=== PATIENT | male | born 1965 | race Caucasian/White ===

== ENCOUNTER 2017-06-18 12:54 | Inpatient (IN) ==
--- OUTSIDE RECORDS SUMMARY | 2017-06-18 13:19 | External Medical Summary | Continuity of Care Document ---
:1965 Author Organization Via [facility] Allergies Active Description Code Type Severity Reaction Onset Reported/ Identified Relationship Clinical to Patient Status Yes No Known NKMA N/A N/A 12/07/2014 Medication Allergies Yes No Known NKMA N/A N/A 12/07/2014 Medication Allergies Yes No Known NKMA N/A N/A 12/15/2014 Allergies Yes No Known NKMA N/A N/A 12/15/2014 Allergies Medications There is no data. Problems Date Dx Attending Type Code Diagnosis Diagnosed By Coded 12/28/2014 Andrew Wagner Final 721.3 LUMBOSACRAL SPONDYLOSIS WITHOUT MYELOPATHY 12/28/2014 Andrew Wagner Admitting 722.52 DEGENERATION OF LUMBAR OR LUMBOSACRAL INTERVERTEBRAL DISC 12/28/2014 Andrew Wagner Final 722.52 DEGENERATION OF LUMBAR OR LUMBOSACRAL INTERVERTEBRAL DISC Procedures Code Description Performed By Performed On 80.51 Excision of 12/20/2014 intervertebral disc 60187 Collection of 12/22/2015 venous blood by venipuncture 71394 Comprehensive 12/22/2015 metabolic panel This panel must include the following: Albumin (54672) Bilirubin, total (96905) Calcium, total (05312) Carbon dioxide (bicarbonate) (31233) Chloride (85458) Creatinine (8 01715 Lipid panel 12/22/2015 This panel must include the following: Cholesterol, serum, total (13387) Lipoprotein, direct measurement, high density cholesterol (HDL cholesterol) (51404) Triglycerides (89687)..... 00099 Prostate 12/22/2015 specific antigen (PSA); total 61634 Blood count; 12/22/2015 complete (CBC), automated (Hgb, Hct, RBC, WBC and platelet count) and automated differential WBC count 26220 Office or 12/22/2015 other outpatient visit for the evaluation and management of an established patient, which requires at least 2 of these 3 aguilera components: A detailed history; A detailed examination; Medical d Results There is no data. Encounters ACCT No. Visit Discharge Status Pt. Type Provider Facility Loc./Unit Complaint Date/Time [id number] 12/20/2014 12/21/2014 DIS Inpatient [place], Via [facility] F6SE Lumbar 47 05:23:00 13:37:00 Andrew Holliday DDD, Hospital stenosis [facility] [id number] 12/22/2015 12/22/2015 DIS Outpatient [place], Via [facility] TCPA 57 08:51:00 23:59:00 Ilan Holliday physical Clinic [id number] 01/23/2015 01/23/2015 DIS Outpatient [place], Via [facility] FM Allergic 21 09:47:00 23:59:00 Ilan Holliday reaction Clinic [id number] 12/07/2014 12/07/2014 DIS Outpatient [place], Via [facility] Mur Pre op, 55 15:21:00 23:59:00 Ilan Holliday Card V72.84, Clinic [place] [id number] 12/07/2014 12/07/2014 DIS Outpatient [place], Via [facility] pre op 48 09:31:00 23:59:00 Ilan Holliday Clinic [id number] 05/23/2014 05/23/2014 DIS Outpatient [place], Via [facility] annual 72 13:44:00 23:59:00 Ilan Holliday checkup/ba Clinic ck pain
[2017-06-18] MEDS ORDERED: PIPERACILLIN/TAZOBACTAM 3.375 GM in NS 100 ML IV ONE (13:27)
--- NOTE | 2017-06-18 13:37 | Emergency Department Report ---
Abdominal Pain HPI - General Chief Complaint: Abdominal Pain Stated Complaint: abd pain Time Seen by Provider: 06/18/17 13:06 Source: patient, RN notes reviewed, old records reviewed, other (PCM) Mode of arrival: ambulatory Limitations: no limitations - History of Present Illness HPI narrative: 51yo man referred to the ER by his PCM for evaluation of abdominal pain. Pt has had low abdominal pain since Friday (4 days). Has taken naproxen and avoided solid foods to help the pain. Is able to tolerate liquids. Has never had sx like this before. MD complaint: abdominal pain Onset (ago): day(s) (4) Consistency: constant Location: LLQ, RLQ Severity: severe Severity scale (1-10): 8 Quality: stabbing, sharp Radiation: none Migration to: no migration Relieving factors: medication, rest Exacerbating factors: eating, movement Associated symptoms: nausea Treatments prior to arrival: NSAIDs - Related Data Home Medications Medication Instructions Recorded Confirmed Aspirin [ASA] 325 mg PO HS 06/18/17 06/18/17 Multivitamin [One Daily 1 each PO HS 06/18/17 06/18/17 Multivitamin] [place]-3/Dha/Epa/Fish Oil [Fish Oil 2 cap PO HS 06/18/17 06/18/17 1,000 mg Softgel] Allergies Allergy/AdvReac Type Severity Reaction Status Date / Time No Known Drug Allergies Allergy Unknown Verified 06/18/17 12:59 Review of Systems All systems: reviewed and negative except as stated Gastrointestinal: Reports: as per HPI, abdominal pain, nausea. Denies: vomiting , diarrhea, constipation, hematemesis, melena, hematochezia [facility] Medical History Updates: CAD. Hyperlipidemia - Social History Smoking status: Unknown if ever smoked Physical Exam - Limitations Limitations: no limitations - General General appearance: alert, in no apparent distress, obese - Head Head exam: atraumatic, normocephalic, normal inspection - Eye Eye exam: Present: normal appearance, PERRL, EOMI. Absent: scleral icterus - ENT ENT exam: Present: normal exam, normal oropharynx, mucous membranes moist, TM's normal bilaterally, normal external ear exam - Neck Neck exam: Present: normal inspection, full ROM, trachea midline. Absent: tenderness, lymphadenopathy - Chest Chest inspection: Present: normal inspection, symmetric chest wall rise. Absent : tenderness, rash - Respiratory Respiratory exam: Present: normal lung sounds bilaterally. Absent: respiratory distress, wheezes, stridor, prolonged expiratory phase, crackles - Cardiovascular Cardiovascular exam: Present: regular rate, normal rhythm, normal heart sounds, +S1, +S2. Absent: systolic murmur, diastolic murmur, +S3, +S4 - Abdominal Exam Abdominal exam: Present: soft, tenderness, normal bowel sounds, heel tap sign, Rovsing's sign. Absent: distention, guarding, rebound, psoas sign, obturator sign, Jara's sign, tenderness at McBurney's Point, hernia Abdominal tenderness: Present: RLQ, LLQ, severe Course - Consultations Consultation #1: Dr. Renteria: Not available (in [place]) Dr. Ramírez: Delay in response 2/2 issues with pager/phone (unclear if Dr. Ramírez ever paged or his nurse called). Time: 13:34 Consultation #2: Hospitalist: Time: 15:06 Vital Signs Temperature 99.4 F 06/18/17 13:00 Pulse Rate 92 06/18/17 13:00 Respiratory Rate 22 06/18/17 13:00 Blood Pressure 120/58 06/18/17 13:00 Pulse Oximetry 98 06/18/17 13:00 Temperature 99.4 F 06/18/17 13:00 Pulse Rate 92 06/18/17 13:00 Respiratory Rate 22 06/18/17 13:00 Blood Pressure 120/58 06/18/17 13:00 Pulse Oximetry 98 06/18/17 13:00 Abdominal Pain - MDM Narrative Medical decision making narrative: Pt with perforated diverticulitis. Pt specifically would prefer to be followed by Dr. Renteria. Will draw blood culx and lactate, start atbx, and consult surgeon. Dr. Ramírez presented to the ER and evaluated pt. Will plan for expeditious open colectomy. Hospitalist will admit pt. - Differential Diagnosis Differential diagnosis: Likely: abdominal pain, acute appendicitis, constipation , diverticulitis, gastroenteritis - Medical Records Attestation: I reviewed the patient's medical records. - Lab Data Attestation: I reviewed the patient's lab results. - Radiology Data Attestation: I reviewed the patient's radiology results. CT Abd/Pelv: Perforated sigmoid diverticulitis. Recommend emergent surgical consultation. Disposition Clinical Impression: Diverticulitis of sigmoid colon, Peritonitis Disposition: 02 To OBS [facility] Print Language: Macedonian Condition: Stable Prescriptions: No Action [place]-3/Dha/Epa/Fish Oil [Fish Oil 1,000 mg Softgel] 2 cap PO HS Multivitamin [One Daily Multivitamin] 1 each PO HS Aspirin [ASA] 325 mg PO HS Time of Disposition: 15:10 - Seen By: physician
[2017-06-18] MEDS ORDERED: NS 1,000 ML IV ONE (13:43)
[2017-06-18] MEDS ORDERED: MORPHINE SULFATE 2mg INJECTION IVP ONE (14:45)
[2017-06-18] MEDS ORDERED: INFLUENZA VAC. INJ. ADMIN CHARGE INJ ONE (15:18)
--- OUTSIDE RECORDS SUMMARY | 2017-06-18 15:26 | External Medical Summary | Continuity of Care Document ---
:1965 Author Organization Via [facility] Allergies Active Description Code Type [...] On 80.51 Excision of 12/20/2014 intervertebral disc 30485 Collection of 12/22/2015 venous blood by venipuncture 16053 Comprehensive 12/22/2015 metabolic panel This panel must include the following: Albumin (20572) Bilirubin, total (76800) Calcium, total (28066) Carbon dioxide (bicarbonate) (49901) Chloride (59349) Creatinine (8 08642 Lipid panel 12/22/2015 This panel must include the following: Cholesterol, serum, total (29598) Lipoprotein, direct measurement, high density cholesterol (HDL cholesterol) (79114) Triglycerides (43268)..... 99294 Prostate 12/22/2015 specific antigen (PSA); total 04164 Blood count; 12/22/2015 complete (CBC), automated (Hgb, Hct, RBC, WBC and platelet count) and automated differential WBC count 96016 Office or 12/22/2015 other outpatient visit for the evaluation and management of an established patient, which requires at least 2 of these 3 aguilera components: A detailed history; A detailed examination; Medical d Results There is no data. Encounters ACCT No. Visit Discharge Status Pt. Type Provider Facility Loc./Unit Complaint Date/Time [id number] 12/20/2014 12/21/2014 DIS Inpatient [place], Via [facility] F6SE Lumbar 47 05:23:00 13:37:00 Andrew Holliday DDD, Hospital stenosis on [place] [id number] 12/22/2015 12/22/2015 DIS Outpatient [place], Via [facility] TCPA 57 08:51:00 23:59:00 Ilan Holliday physical Clinic [id number] 01/23/2015 01/23/2015 DIS Outpatient [place], Via [facility] FM Allergic 21 09:47:00 23:59:00 Ilan Holliday reaction Clinic [id number] 12/07/2014 12/07/2014 DIS Outpatient [place], Via [facility] Mur Pre op, 55 15:21:00 23:59:00 Ilan Holliday Card V72.84, Clinic [place] [id number] 12/07/2014 12/07/2014 DIS Outpatient [place], Via [facility] pre op 48 09:31:00 23:59:00 Ilan Holliday Clinic [id number] 05/23/2014 05/23/2014 DIS Outpatient [place], Via [facility] annual 72 13:44:00 23:59:00 Ilan Holliday checkup/ba Clinic ck pain
[2017-06-18] MEDS ORDERED: NS 1,000 ML IV SCH (15:37)
[2017-06-18] MEDS ORDERED: ONDANSETRON 4 MG/2 ML INJECTION IVP PRN ×3 (15:37→21:59)
[2017-06-18] MEDS ORDERED: ACETAMINOPHEN 325 MG TABLET PO PRN (15:37)
[2017-06-18] MEDS ORDERED: SENNA + DOCUSATE TABLET PO PRN (15:37)
[2017-06-18] MEDS ORDERED: HYDROMORPHONE 2 MG/ML INJECTION IVP PRN ×2 (15:37→21:59)
--- NOTE | 2017-06-18 15:40 | Anesthesia Preoperative Report ---
Anesthesia Preoperative Record - Date and Time Date: 06/18/17 Preoperative Diagnosis: abd pain Proposed Procedure: exploratory lap NPO Since Date: 06/17/17 NPO Since Time: 22:00 Allergies/Adverse Reactions: Allergies Allergy/AdvReac Type Severity Reaction Status Date / Time No Known Drug Allergies Allergy Unknown Verified 06/18/17 12:59 - Vital Signs Vital Signs: Temperature 99.4 F 06/18/17 13:00 Pulse Rate 89 06/18/17 15:15 Respiratory Rate 19 06/18/17 15:15 Blood Pressure 106/60 06/18/17 15:15 Pulse Oximetry 97 06/18/17 15:15 Height and Weight: Height 1.93 m Weight 103.1 kg - Medications Home Medications: Home Medications Medication Instructions Recorded Confirmed Type Aspirin [ASA] 325 mg PO HS 06/18/17 06/18/17 History Multivitamin [One Daily 1 each PO HS 06/18/17 06/18/17 History Multivitamin] [place]-3/Dha/Epa/Fish Oil [Fish Oil 2 cap PO HS 06/18/17 06/18/17 History 1,000 mg Softgel] Is Patient on Beta Yessica?: No - Medical History Gastrointestional: Reports: Gastroesophageal Reflux Disease Neuro/Musculoskeletal: Reports: Back Problems (anterior fusion L4) - Surgical History HEENT Surgeries: Reports: Nose Surgery (DEVIATED SEPTUM REPAIR) - Social History Smoking Status: Current every day smoker Packs per day: 1 Pack-years: 30 Hx Chewing Tobacco Use: No Second Hand Exposure: No Substance Use Type: does not use Alcohol Intake Frequency: does not drink - Pertinent Findings EKG: Sinus Rhythm - Physical Exam Respiratory Exam: Present: lungs clear Cardiovascular Exam: Present: regular rate and rhythm, no murmur - Airway Assessment Mallampati Score: I TMD: 3 Fingerbreadths Neck Extension: good Teeth: chipped teeth/crowns Overall Assessment: no airway concerns - ASA ASA Score: 2, E - Plan Anesthesia: General Inhalation Gases - Discussion Discussion: Discussed risks/options/alternatives of anesthesia and questions answered. Patient consents. Nursing pain assessment noted. Present for Discussion: spouse, family member Attestation Statement: Prior to the delivery of any anesthetic medication, I examined the patient, developed the plan, obtained the patient's consent and discussed the risk and benefits of the procedure with the patient/guardian. - Additional Information Seen by Anesthesia: Yes
[2017-06-18] MEDS: LR 1,000 ML IV SCH ×3 (16:00→19:09)
[2017-06-18] MEDS ORDERED: ROCURONIUM 50 MG/5 ML INJECTION IVP ONE (16:01)
[2017-06-18] MEDS ORDERED: PROPOFOL 20 ML ONE (16:01)
[2017-06-18] MEDS ORDERED: FentaNYL 250 MCG/5 ML INJECTION ONE (16:24)
--- NOTE | 2017-06-18 17:14 | History & Physical Report ---
History of Present Illness Date: 06/19/17 Chief complaint: bowel perforation, leukocytosis HPI: Jerry Theodore is a 51-year-old male who presented to [facility] today, 06/18/17, for evaluation of lower abdominal pain for the past 4 days. He was seen by his PCP who obtained an outpatient CT abdomen/pelvis on 06/18/17 which revealed perforated sigmoid diverticulitis and recommended emergent surgical consultation. He then presented to [facility] for further evaluation at which time Dr. Ramírez was consulted and recommended immediate surgery with the hospitalist service to admit. Dr. Bob was consulted and accepted him into inpatient status following his surgery. He is expected to stay longer than 2 nights. Labs were obtained prior to surgery which revealed leukocytosis (WBC 13.0) and mild anemia (Hgb 13.0). BMP was unremarkable. Lactate 1.3. Review of Systems All systems PM: 10-point ROS was reviewed, no additional remarkable complaints except - Constitutional Constitutional: Present: fever(s) - EENMT Eyes: Absent: photophobia Balance: Absent: falling to one side Nose: Absent: nosebleeds Mouth/Throat: Present: dry mouth. Absent: sore throat - Cardiovascular Cardiovascular: Absent: chest pain, palpitations, syncope, dyspnea on exertion, orthopnea, edema Vascular: Absent: pallor of an extermity, pedal edema - Respiratory Respiratory: Absent: cough, dyspnea, hemoptysis, dyspnea on exertion, wheezing - Gastrointestinal Gastrointestinal: Present: abdominal pain (lower abdomen), dyspepsia, nausea - Genitourinary Genitourinary: Absent: dysuria, hematuria - Musculoskeletal Musculoskeletal: Absent: deformity - Integumentary/Breasts Integumentary: Absent: rash - Neurological Neurological: Absent: confusion, weakness - Psychiatric Psychiatric: Absent: depression - Endocrine Endocrine: Absent: palpitations - Hematologic/Lymphatic Hematologic/Lymphatic: Absent: easy bruising - Allergic/Immunologic Allergic/Immunologic: Absent: seasonal rhinorrhea Past Medical History Patient Stated Medical History Hypertension. CAD. Hyperlipidemia. History of CVA and TIA. GERD. Chronic back pain secondary to herniated disk. Surgical History: Deviated septum repair. Tubes in ears bilaterally for chronic otitis. Heart cath - 2010. Anterior fusion L4. Family History Updates: Father - lung cancer due to asbestos. Mother - hypothyroidism, osteoarthritis. Grandfather - diabetes, muscular dystrophy. - Social History Smoking status: Current every day smoker Packs per day: 1 Packs-years: 30 Substance use type: does not use Alcohol intake frequency: holidays/special occasions only Housing: house Household members: spouse service: Yes ([employer]) Current occupational status: retired Does patient use chewing tobacco?: No Current residence: Apartment/Private Home Social history: PCP - Lyndsey Walker APRN. Cardio - Dr. Nair. Medications Home Medications Medication Instructions Recorded Confirmed Type Aspirin [ASA] 325 mg PO HS 06/18/17 06/18/17 History Multivitamin [One Daily 1 each PO HS 06/18/17 06/18/17 History Multivitamin] Naproxen [Aleve] 220 mg PO Q6H PRN 06/18/17 06/18/17 History [place]-3/Dha/Epa/Fish Oil [Fish Oil 2 cap PO HS 06/18/17 06/18/17 History 1,000 mg Softgel] Allergies Allergy/AdvReac Type Severity Reaction Status Date / Time morphine AdvReac Verified 06/18/17 15:52 Exam Vital Signs: Temperature 99.1 F 06/18/17 15:53 Pulse Rate 107 H 06/18/17 15:53 Respiratory Rate 15 06/18/17 15:53 Blood Pressure 140/67 H 06/18/17 15:53 Pulse Oximetry 98 06/18/17 15:53 Telemetry Rhythm: Sinus Rhythm Height/Weight/BMI: Height 6 ft 4 in Weight 227 lb 4.745 oz Comments: Patient is seen shortly after his arrival to CCU. His , Jenny, is at the bedside. He complains of pain 8/10 but appears in no acute distress. - Constitutional Present: no acute distress, well nourished, well developed, cooperative - Routine HEENT Exam Head: Present: normocephalic, atraumatic Eye: Present: PERRL. Absent: conjunctival icterus ENT: Present: mucous membranes dry - Routine Neck Exam Present: supple, trachea midline - Routine Chest/Breast/Axilla Exam Chest wall: Absent: tenderness - Routine Respiratory Exam Absent: accessory muscle use Comments: diminished lung sounds bilaterally; breathing easily on 2L NC without distress; no conversational dyspnea. - Routine Cardiovascular Exam Present: RRR, S1, S2, no murmur - Routine Abdominal Exam Present: soft, tenderness Comments: hypoactive bowel sounds. - Routine Extremities Exam Present: no edema, pulses intact - Routine Back/Spine/Pelvis Exam Comments: unable to examine due to severe abdominal pain. - Routine Skin Exam Present: dry, warm. Absent: jaundice Comments: afebrile - Routine Neurological Exam Present: alert, oriented X3, moving all extremities, normal speech - Routine Psychiatric Exam Present: cooperative Comments: sedated from recent surgery and medications. Results - Labs CBC & Chem 7: 06/19/17 04:47 06/19/17 04:47 Microbiology Results: Microbiology 06/18/17 13:50 Peripheral/Iv Start Blood Culture - Preliminary Culture Initiated - Results Pending 06/18/17 13:44 Peripheral/Iv Start Blood Culture - Preliminary Culture Initiated - Results Pending - Imaging and Cardiology CT scan - abdomen Status: image reviewed by me Additional comments: Date of Exam: 06/18/17 Type of Exam(s): CT abdomen pelvis w con Reason for Exam(s): R10.9 ACUTE ABD PAIN Technique: Axial CT images were performed through the abdomen and pelvis after the administration of intravenous contrast. Coronal and sagittal two-dimensional reformats. Automated Exposure Control and Iterative Reconstruction dose reducing techniques were utilized. Contrast: Omnipaque 300 99 mL Findings: Linear atelectasis seen in the lingula and both lower lobes. Free intraperitoneal air is seen in the right upper abdomen surrounding the liver margin. There is a low-attenuation 1.7 cm lesion in the central aspect of the right lobe of the liver measuring 18 Hounsfield units. This could represent a benign cyst . Small amount of free air in the guicho hepatis. The gallbladder appears normal. The spleen is unremarkable. The pancreas and adrenal glands are normal. The kidneys are normal. Small foci of free air along the greater curvature of stomach and under the left hemidiaphragm as well. There is inflammation in the pelvis adjacent to the left aspect of the bladder which is otherwise normal. There is sigmoid colonic severe inflammatory change with multiple diverticula present. There is a large focus of extraluminal gas seen adjacent to the mid sigmoid colon on image #77 measuring 3 cm in diameter. Severe inflammation within the adjacent sigmoid mesentery with inflammatory change extending into the left inguinal canal. No evidence of a bowel obstruction. The appendix is slightly thickened at 7 mm in diameter without adjacent inflammatory stranding. No well-defined rim-enhancing abscess identified. There is a small amount of free fluid in the left pelvis adjacent to the sigmoid colonic perforation. Bone windows show postoperative changes in the spine. No lytic or blastic bony lesions. Impression: Perforated sigmoid diverticulitis. Recommend emergent surgical consultation. Assessment and Plan (1) Perforation bowel Current visit: Yes Status: Acute (2) Diverticulitis of sigmoid colon Current visit: Yes Status: Acute (3) Peritonitis Current visit: Yes Status: Acute Assessment and Plan: Acute Medical History Bowel perforation secondary to diverticulitis, acute. Acute peritonitis. Leukocytosis, present on admission. Mild anemia, present on admission. Patient Stated Medical History Hypertension. CAD. Hyperlipidemia. History of CVA and TIA. GERD. Chronic back pain secondary to herniated disk. Plan - 06/18/17 (Admission) Admit to inpatient status under hospitalist service. Dr. Ramírez was consulted by ED and requests that hospitalist admit as he plans to take the patient to surgery immediately. Zosyn initiated in ED for antimicrobial coverage of suspected abdominal pathogens. Will continue per Dr. Ramírez. While in the ED, he received 1L NS. Will continue IV hydration. Monitor urinary output closely. Dick placed prior to surgery. Monitor blood pressure closely as he has a history of hypertension but is currently not taking any home medications for it. Encourage incentive spirometry. Recheck CBC and BMP in AM to monitor blood counts, electrolytes and renal function. Upon discharge, patient's care will returned to his PCP. DVT Prophylaxis: SCD's GI Prophylaxis: Protonix Resuscitation Status: Full Code - Time spent with patient Time with patient PN: 50 minutes - Physician Narrative Physician: other (Dr. Bob) Narrative: Date: 06/18/17 Time: 1710 Agree with above documentation. Discussed with PA/TORPEDO WORKER and directed plan of care. Admitting to hospitalist service per request of surgeon. Patient immediately to OR. Will continue abx and monitor labs post op. Hospital Course Summary Disclaimer: The visit summary below is not to be considered part of the above Progress Note. Hospital Course: Plan - 06/18/17 (Admission) Admit to inpatient status under hospitalist service. Dr. Ramírez was consulted by ED and requests that hospitalist admit as he plans to take the patient to surgery immediately. Zosyn initiated in ED for antimicrobial coverage of suspected abdominal pathogens. Will continue per Dr. Ramírez. While in the ED, he received 1L NS. Will continue IV hydration. Monitor urinary output closely. Dick placed prior to surgery. Monitor blood pressure closely as he has a history of hypertension but is currently not taking any home medications for it. Encourage incentive spirometry. Recheck CBC and BMP in AM to monitor blood counts, electrolytes and renal function. Upon discharge, patient's care will returned to his PCP.
[2017-06-18] MEDS ORDERED: DESFLURANE 240ml LIQUID IH ONE (17:31)
[2017-06-18] MEDS ORDERED: FentaNYL 100 MCG/2 ML INJECTION ONE (19:18)
--- NOTE | 2017-06-18 19:37 | General Surgery Procedure Note ---
Date of Procedure: 06/18/17 Surgeon: Desiree Postoperative Diagnosis: Perforated sigmoid colon diverticulum Procedure: Sigmoid colon resection with primary anastomosis. Estimated Blood Loss: See Anesthesia Record.
[2017-06-18] MEDS ORDERED: SUGAMMADEX 200mg/2ml INJECTION IVP ONE (19:40)
[2017-06-18] MEDS ORDERED: KETOROLAC 30 MG/ML INJECTION ONE (19:40)
[2017-06-18] MEDS ORDERED: DEXAMETHASONE 4 MG/ML INJECTION ONE (19:41)
[2017-06-18] MEDS ORDERED: ONDANSETRON 4 MG/2 ML INJECTION ONE (19:41)
[2017-06-18] MEDS ORDERED: METOCLOPRAMIDE 10mg/2ml INJECTION IVP PRN (19:58)
[2017-06-18] MEDS: FentaNYL 100 MCG/2 ML INJECTION IVP PRN ×3 (20:01→20:29)
--- NOTE | 2017-06-18 20:24 | Anesthesia Postoperative Note ---
- Date and Time Date: 06/18/17 Time: 20:24 - Status Patient Participated in Evaluation: Patient Participated in Person Vital Signs: Temperature 98.4 F 06/18/17 19:44 Pulse Rate 114 H 06/18/17 19:44 Respiratory Rate 16 06/18/17 19:44 Blood Pressure 109/57 06/18/17 19:44 Pulse Oximetry 99 06/18/17 19:44 Respiratory Function: Airway Patent Cardiovascular Function: Regular Pulse EKG: Sinus Rhythm Mental Status: Alert and Oriented Pain Intensity: 5 Hydration: IV Infusing Complications During Recover: None Apparent - Follow-Up Instructions Instructions: Per Surgeon
[2017-06-18] MEDS ORDERED: PROMETHAZINE 25 MG INJECTION IVP PRN (21:59)
[2017-06-18] MEDS: D5-1/2NS with KCL 20mEq 1,000 ML IV SCH (22:07)
[2017-06-18] MEDS: MEPERIDINE 100 MG/ML INJECTION IVP PRN (22:09)
[2017-06-18] MEDS: PIPERACILLIN/TAZOBACTAM 3.375 GM in NS 100 ML IV SCH (22:45)
[2017-06-18] MEDS: PANTOPRAZOLE 40 MG INJECTION IVP SCH (22:58)
[2017-06-18] MEDS: KETOROLAC 30 MG/ML INJECTION IVP PRN (23:15)
[2017-06-19] MEDS: PIPERACILLIN/TAZOBACTAM 3.375 GM in NS 100 ML IV SCH (04:03)
[2017-06-19] MEDS: KETOROLAC 30 MG/ML INJECTION IVP PRN ×3 (06:15→18:47)
[2017-06-19] MEDS ORDERED: PIPERACILLIN/TAZOBACTAM 3.375 GM in NS 50 ML IV SCH (06:30)
--- NOTE | 2017-06-19 07:03 | Consultation ---
DATE OF CONSULTATION 06/18/2017 HISTORY OF PRESENT ILLNESS This patient is 51 years old. This patient has had lower abdominal pain for the last 4 days. This started out at the right lower quadrant of the abdomen. He did come into the [facility] for evaluation of the abdominal pain today. He was seen by his primary care provider (Lyndsey Walker APRN). His primary care provider sent him to the hospital to have a CBC and a CT scan of the abdomen and pelvis. The patient was then told to come to the emergency room after that. The CBC shows a white blood cell count of 13,000. The patient did undergo a CT scan of the abdomen and pelvis on 06/18/2017. This shows a perforated sigmoid colon diverticulum with diverticulitis. The sigmoid colon has severe inflammatory change with multiple diverticula. There is a large focus of extraluminal gas adjacent to the mid sigmoid colon. There is severe inflammation within the sigmoid colon mesentery. There is free intraperitoneal air at the right upper quadrant of the abdomen around the liver margin. There is also free air under the left hemidiaphragm. After having the CT scan, the patient did go to the emergency room for further evaluation. It was determined during this time that the patient does have acute diverticulitis with a perforated sigmoid colon diverticulum. The patient continues to have severe low abdominal pain. PHYSICAL EXAMINATION VITAL SIGNS: Temperature is 94.4 degrees Fahrenheit oral. Pulse is 92. Respiratory is 18. Blood pressure is 113/68. Oxygen saturation is 97% on room air. ABDOMEN: The patient has severe bilateral lower abdominal tenderness. The abdomen is soft. The patient has an old left lower quadrant paramedian abdominal incision scar. This is from an operation on the lumbar spine through an anterior approach through the abdomen. LABORATORY DATA Plasma lactate is 1.3. White blood cell count is 13,000 with 84.5% neutrophils. Hemoglobin is 13. Hematocrit is 39.3. IMAGING DATA The patient did undergo a CT scan of the abdomen and pelvis on 06/18/2017 with findings as described above. IMPRESSION 1. Acute sigmoid colon diverticulitis with perforation of sigmoid colon diverticulum and generalized peritonitis. PATIENT EDUCATION I did inform the patient of the CT scan findings. I did recommend that the patient undergo exploratory laparotomy with operative treatment of the perforated sigmoid colon diverticulum. I did tell the patient that this might be treated with a first stage Kian procedure which would involve resection of the sigmoid colon with formation of an end colostomy and closure of this segment of sigmoid colon. I told the patient that there is also a chance that he might undergo sigmoid colon resection with a primary anastomosis at the time of this operation. I told the patient that a third possibility would be that he would undergo sigmoid colon resection with primary anastomosis with a diverting ileostomy. The nature of all these operations were explained to the patient. Expected benefits of operation was reviewed with the patient. Alternatives were reviewed. I did inform the patient of potential risks and complications including anesthetic risk, bleeding, postoperative infectious complications, anastomotic leak, anastomotic stricture, and injury to intraabdominal and retroperitoneal structures such as blood vessels or the ureters. Questions were solicited from the patient. All of his questions were answered. The patient does wish to proceed. PLAN Exploratory laparotomy with sigmoid colon resection with possible first stage Kian procedure with end colostomy formation and closure of distal segment of sigmoid colon and possible primary anastomosis. MICHAEL
[2017-06-19] MEDS: ENOXAPARIN 40 MG/0.4 ML INJECTION SQ SCH (08:23)
[2017-06-19] MEDS: PANTOPRAZOLE 40 MG INJECTION IVP SCH (08:23)
[2017-06-19] MEDS: D5-1/2NS with KCL 20mEq 1,000 ML IV SCH ×2 (08:24→19:57)
[2017-06-19] MEDS: PIPERACILLIN/TAZOBACTAM 3.375 GM in NS 50 ML IV SCH ×3 (10:33→22:52)
--- NOTE | 2017-06-19 10:39 | Progress Note ---
- Date 06/19/17 Subjective: Patient reports he is doing really well today. Denies any pain. Has been up walking this morning. Reports bed is uncomfortable and he did not get any sleep. He is hoping to transfer out of the ICU soon to be able to get some rest. Objective Vital signs: Temperature 97.7 F 06/18/17 23:20 Pulse Rate 92 06/19/17 08:00 Respiratory Rate 15 06/19/17 10:03 Blood Pressure 117/60 06/19/17 07:00 Pulse Oximetry 94 06/19/17 10:03 Height/Weight/BMI: Height 6 ft 4 in Weight 106.3 kg - Constitutional Present: no acute distress, average body habitus, cooperative - Routine HEENT Exam Head: Present: normocephalic, atraumatic Eye: Present: EOMI, conjunctivae pink ENT: Present: mucous membranes moist, nares patent - Routine Respiratory Exam Present: CTA bilaterally. Absent: respiratory distress - Routine Cardiovascular Exam Present: RRR, no murmur - Routine Abdominal Exam Present: soft. Absent: tenderness Comments: bandaging/drain in place midline - Routine Extremities Exam Present: no edema, pulses intact, normal capillary refill. Absent: cyanosis, clubbing - Routine Musculoskeletal Exam Musculoskeletal: Present: no clubbing or cyanosis, normal strength, normal gait - Routine Skin Exam Present: intact, dry, warm - Routine Neurological Exam Present: alert, oriented X3, CN II-XII intact - Routine Psychiatric Exam Present: normal affect, good insight, good judgment Results - Labs CBC & Chem 7: 06/19/17 04:47 06/19/17 04:47 Microbiology Results: Microbiology 06/18/17 13:50 Peripheral/Iv Start Blood Culture - Preliminary Culture Initiated - Results Pending 06/18/17 13:44 Peripheral/Iv Start Blood Culture - Preliminary Culture Initiated - Results Pending Assessment and Plan (1) Perforation bowel Current visit: Yes Status: Acute (2) Diverticulitis of sigmoid colon Current visit: Yes Status: Acute (3) Peritonitis Current visit: Yes Status: Acute Assessment and Plan: Assessment Bowel perforation secondary to diverticulitis s/p Sigmoid colon resection with primary anastomosis Acute peritonitis Abdominal pain-controlled Leukocytosis, present on admission Mild anemia, present on admission Plan Continue Zosyn, will de-escalate when surgery comfortable with it Pain is well controlled Bowel management per surgery Diet and advancement per surgery Monitor labs Transfer out of ICU when surgery agreeable DVT Prophylaxis: Lovenox - Physician Narrative Narrative: Date: 06/19/17 Time: 1033 Hospital Course Summary Disclaimer: The visit summary below is not to be considered part of the above Progress Note. Hospital Course: Plan - 06/18/17 (Admission) Admit to inpatient status under hospitalist service. Dr. Ramírez was consulted by ED and requests that hospitalist admit as he plans to take the patient to surgery immediately. Zosyn initiated in ED for antimicrobial coverage of suspected abdominal pathogens. Will continue per Dr. Ramírez. While in the ED, he received 1L NS. Will continue IV hydration. Monitor urinary output closely. Dick placed prior to surgery. Monitor blood pressure closely as he has a history of hypertension but is currently not taking any home medications for it. Encourage incentive spirometry. Recheck CBC and BMP in AM to monitor blood counts, electrolytes and renal function. Upon discharge, patient's care will returned to his PCP. 06/19 Continue Zosyn, will de-escalate when surgery comfortable with it Pain is well controlled Bowel management per surgery Diet and advancement per surgery Monitor labs Transfer out of ICU when surgery agreeable
--- NOTE | 2017-06-19 11:59 | Progress Note ---
DATE 06/19/2017 POSTOP DAY #1 HISTORY The patient is in the Intensive Care Unit. The patient is doing well. He has been up ambulating in the Intensive Care Unit. He is using Toradol for pain control. He has not used any intravenous narcotics for pain control. The patient is using incentive spirometry. The patient is receiving intravenous Zosyn. INTAKE AND OUTPUT The patient has good urine output. PHYSICAL EXAMINATION VITAL SIGNS: Pulse is 79. Respiratory rate is 19. Oxygen saturation is 96% on room air. ABDOMEN: Dressings are left in place at the abdominal incision. LABORATORY DATA White blood cell count is 10,100 with one band. Hemoglobin is 11.3. Hematocrit is 34. Serum sodium is 143. Potassium is 4. Serum creatinine is 1. IMPRESSION Doing well following exploratory laparotomy, mobilization of splenic flexure, sigmoid colon resection and primary anastomosis on 06/18/2017. PLAN 1. Discontinue Dick catheter today. 2. Transfer the patient out of Intensive Care Unit out to the Surgical Unit today. 3. Continue ambulation. 4. Continue incentive spirometry. 5. Continue Lovenox and sequential compression devices for deep venous thrombosis prophylaxis. 6. Continue intravenous Zosyn. MTDD
--- NOTE | 2017-06-19 13:52 | Operative Note ---
DATE OF OPERATION 06/18/2017 PREOPERATIVE DIAGNOSIS Acute sigmoid colon diverticulitis with a perforated sigmoid colon diverticulum. POSTOPERATIVE DIAGNOSIS Acute sigmoid colon diverticulitis with a perforated sigmoid colon diverticulum. OPERATION Exploratory laparotomy, mobilization of splenic flexure of colon, resection of segment of sigmoid colon and primary anastomosis. SURGEON Dr. Ramírez DIGITAL FORENSIC ANALYST Dr. Yonatan Stroud ANESTHESIA General ASA CLASSIFICATION 2E FINDINGS The patient did have a perforated diverticulum in the mid sigmoid colon. There was a small walled-off abscess adjacent to the perforation site. The sigmoid colon was thickened and inflamed due to acute diverticulitis. There was no stool in the peritoneal cavity. Most of the inflammation was localized to the area around the sigmoid colon. There was little generalized peritonitis. The patient had severe inflammation of the sigmoid colon but this process was fairly well walled off. The remainder of the colon appeared normal. Small intestine appeared normal. The liver appeared normal. Stomach appeared normal. The patient did have a short vertically oriented left lower quadrant paramedian abdominal incision scar. This was from an operation on the lumbar spine performed through an anterior approach through the abdomen. DESCRIPTION OF OPERATION The patient was placed in supine position on the operating table. General anesthesia was satisfactorily induced. The position of the patient was changed to a low lithotomy position. The abdomen was prepped and draped in routine sterile fashion. A midline vertically oriented abdominal incision was made and extended through the abdominal wall. The peritoneal cavity was entered. The abdomen was explored with findings as described above. An Vinay wound protector was placed at the incision. The Codman retractor was assembled and used to provide exposure. The perforation site at the sigmoid colon was easily identified. The sigmoid colon was from the left lateral pelvic sidewall and elevated up towards the incision. Healthy noninflamed colon was identified proximal and distal to the segment of sigmoid colon affected with the acute diverticulitis. There was some good healthy colon which was not inflamed and not involved with diverticulosis proximal and distal to the segment of sigmoid colon affected with the acute diverticulitis. A decision was made to resect the segment of colon containing the perforation site and acute diverticulitis and perform a primary anastomosis. The intersigmoid fossa was entered at this time. The sigmoid colon was mobilized further medially. The left ureter was identified at this time lateral to the base of the sigmoid colon mesentery and protected from injury. The peritoneum was then divided at the left lateral gutter along the white line of Toldt to mobilize the proximal sigmoid colon and the descending colon medially. The splenic flexure of the colon was then mobilized. The greater omentum was from the distal transverse colon. The splenic flexure of the colon was mobilized. The colon at the distal transverse colon, splenic flexure and descending colon was all mobilized medially. The sigmoid colon was then further mobilized medially. The segment of sigmoid colon affected with the diverticulosis was identified. A 3-0 Vicryl stitch was placed at the serosal surface of the colon at the level of the most proximal diverticula which could be identified. Another 3-0 Vicryl stitch was placed at the serosal surface of the sigmoid colon at the level of the most distal diverticulum which could be identified. Proximal and distal resection margins were selected beyond these stitches so that all of the colon which appeared to be affected with diverticulosis including the perforation site of the colon would be resected. A proximal resection margin was selected. The colon was divided at the proximal resection margin with the EthiPic[employer] brand TLC75 linear cutter-stapler. A distal resection margin was selected. The colon was divided at the distal resection margin with the [employer] brand TLC75 linear cutter-stapler. Sigmoid colon mesentery was then divided beneath the sigmoid colon to be resected. The mesentery was clamped with right angle clamps and divided between the clamps and ligated with 0 Vicryl ligatures. The specimen of sigmoid colon which was resected was then handed off. Irrigation was performed throughout the peritoneal cavity at this time. Hemostasis appeared be satisfactory everywhere along the left lateral gutter. The two remaining ends of the sigmoid colon were then anastomosed to one another with a functional end-to-end anastomosis using the TLC75 linear cutter-stapler and the Ethicon brand TX60G stapler. The internal staple lines were examined as this anastomosis was performed and they appeared be satisfactory. There appeared be a good blood supply to the anastomosis. There appeared to be a good lumen at the anastomosis. There was no tension on the anastomosis. The crotch of the anastomosis was reinforced with a couple of simple interrupted seromuscular stitches using 3-0 Vicryl suture. The anastomosis was then tested. The rigid proctoscope was introduced into the rectum. Air was instilled into the rectum and colon with a rigid proctoscope. The pelvis was filled with water as this was being done. Air was noted to distend up the colon proximal to the anastomosis. Water had been poured into the peritoneal cavity at the pelvis to cover the anastomosis during this time. Air was noted to distend up the colon proximal to the anastomosis. There was no bubbling of air up through the water in the pelvis to suggest any leak at the anastomosis at this time. The rigid proctoscope was then removed from the rectum. The anastomosis did appear to be airtight at this time. Hemostasis remained satisfactory throughout the peritoneal cavity. The Codman retractor was removed. The Vinay wound protector which had been used throughout the operation was removed at this time. The greater omentum was brought down over the loops of intestine. The surgeon and butcher assistant and scrub nurse all changed gowns and gloves at this time. New light handles were used. New sterile drapes were placed at the abdomen. A new dedicated set of sterile closing instruments was used at this time. The abdominal incision was then closed. The fascial layer of the incision was closed with a continuous simple [id number] stitch using #1 PDS suture. Skin margins at the incision were reapproximated with skin edy. Sterile dressings were applied. Sponge, needle and instrument counts were all correct at the end of the operation. The patient was taken out of low lithotomy position and returned back to supine position. The patient did appear to tolerate the operation well. The patient was transferred from the operating room to the recovery room in stable condition. MICHAEL
[2017-06-19] MEDS ORDERED: INFLUENZA VAC QIV 2017-18 (Fluarix*)(>=3yo) 0.5ml IM ONE (15:20)
[2017-06-19] MEDS: NICOTINE 21 MG PATCH TD SCH (16:47)
[2017-06-19] MEDS: MEPERIDINE 100 MG/ML INJECTION IVP PRN (22:58)
[2017-06-20] MEDS: PIPERACILLIN/TAZOBACTAM 3.375 GM in NS 50 ML IV SCH ×4 (04:38→21:07)
[2017-06-20] MEDS: D5-1/2NS with KCL 20mEq 1,000 ML IV SCH ×5 (04:38→19:33)
[2017-06-20] MEDS: MEPERIDINE 100 MG/ML INJECTION IVP PRN (04:48)
[2017-06-20] MEDS: NICOTINE 21 MG PATCH TD SCH (08:48)
[2017-06-20] MEDS: NICOTINE PATCH REMOVAL TD SCH (08:49)
[2017-06-20] MEDS: PANTOPRAZOLE 40 MG INJECTION IVP SCH (08:49)
[2017-06-20] MEDS: ENOXAPARIN 40 MG/0.4 ML INJECTION SQ SCH (08:50)
[2017-06-20] MEDS: KETOROLAC 30 MG/ML INJECTION IVP PRN ×3 (08:53→21:07)
[2017-06-20] MEDS ORDERED: Oxycodone *IR* 5 MG TABLET PO PRN (12:12)
--- NOTE | 2017-06-20 13:15 | Progress Note ---
DATE 06/20/2017 POSTOP DAY #2 HISTORY OF PRESENT ILLNESS The patient is on the surgery unit at this time. He has been ambulating well. The patient began passing flatus last night and has passed quite a bit of flatus today. The patient does not have any nausea or vomiting. He is using incentive spirometry. The patient continues to receive IV Zosyn. PHYSICAL EXAMINATION VITAL SIGNS: Temperature is 97.6 degrees Fahrenheit oral. Pulse is 78. Respiratory rate is 14. Blood pressure is 132/84. Oxygen saturation is 95% on room air. ABDOMEN: The abdominal incision looks good. LABORATORY DATA White blood cell count is 10,800 with no bands. Hemoglobin is 10.6. Hematocrit is 32.1. Serum sodium is 142. Serum potassium is 3.8. Serum creatinine is 1. IMPRESSION 1. Doing well following exploratory laparotomy, mobilization of splenic flexure , sigmoid colon resection and primary anastomosis on 06/18/2017. PLAN 1. Continue ambulation. 2. Continue incentive spirometry. 3. Continue Lovenox and sequential compression devices for deep venous thrombosis prophylaxis. 4. Continue intravenous Zosyn. 5. Start clear liquid diet with toast and crackers today. 6. Decrease rate of administration of intravenous fluids. 7. Make oral medications for pain control available to begin transition from intravenous analgesics to oral analgesics. 8. Continue IV Toradol for now. MTDD
--- NOTE | 2017-06-20 15:25 | Progress Note ---
- Date 06/20/17 Subjective: Patient is feeling well today. Still unable to sleep well but states that is his baseline. Reports surgery is advancing diet to clears. Objective Vital signs: Temperature 97.6 F 06/20/17 11:31 Pulse Rate 78 06/20/17 11:31 Respiratory Rate 14 06/20/17 11:31 Blood Pressure 132/84 06/20/17 11:31 Pulse Oximetry 95 06/20/17 11:31 Height/Weight/BMI: Weight 105.7 kg - Constitutional Present: no acute distress, average body habitus - Routine HEENT Exam Head: Present: normocephalic, atraumatic Eye: Present: EOMI, conjunctivae pink ENT: Present: mucous membranes moist - Routine Respiratory Exam Present: CTA bilaterally. Absent: respiratory distress - Routine Cardiovascular Exam Present: RRR, no murmur - Routine Abdominal Exam Present: soft Comments: edy midline with no erythema or drainage, slightly hypoactive BS - Routine Extremities Exam Present: edema, no edema. Absent: cyanosis, clubbing - Routine Skin Exam Present: intact, dry, warm - Routine Neurological Exam Present: alert, oriented X3, CN II-XII intact, normal speech - Routine Psychiatric Exam Present: normal affect, cooperative Results - Labs CBC & Chem 7: 06/20/17 04:18 06/20/17 04:18 Assessment and Plan (1) Perforation bowel Current visit: Yes Status: Acute (2) Diverticulitis of sigmoid colon Current visit: Yes Status: Acute (3) Peritonitis Current visit: Yes Status: Acute Assessment and Plan: Assessment Bowel perforation secondary to diverticulitis s/p Sigmoid colon resection with primary anastomosis Acute peritonitis Abdominal pain-controlled Leukocytosis-resolved Mild anemia-present on admission Plan Continue Zosyn, will de-escalate when surgery comfortable with it Pain is well controlled Bowel management per surgery Diet and advancement per surgery-advanced to clears today Monitor labs DVT Prophylaxis: SCD's Resuscitation Status: Full Code - Physician Narrative Narrative: Date: 06/20/17 Time: 1522 Hospital Course Summary Disclaimer: The visit summary below is not to be considered part of the above Progress Note. Hospital Course: Plan - 06/18/17 (Admission) Admit to inpatient status under hospitalist service. Dr. Ramírez was consulted by ED and requests that hospitalist admit as he plans to take the patient to surgery immediately. Zosyn initiated in ED for antimicrobial coverage of suspected abdominal pathogens. Will continue per Dr. Ramírez. While in the ED, he received 1L NS. Will continue IV hydration. Monitor urinary output closely. Dick placed prior to surgery. Monitor blood pressure closely as he has a history of hypertension but is currently not taking any home medications for it. Encourage incentive spirometry. Recheck CBC and BMP in AM to monitor blood counts, electrolytes and renal function. Upon discharge, patient's care will returned to his PCP. 06/19 Continue Zosyn, will de-escalate when surgery comfortable with it Pain is well controlled Bowel management per surgery Diet and advancement per surgery Monitor labs Transfer out of ICU when surgery agreeable 06/20 Continue Zosyn, will de-escalate when surgery comfortable with it Pain is well controlled Bowel management per surgery Diet and advancement per surgery-advanced to clears today Monitor labs
[2017-06-20] MEDS: DiphenhydrAMINE 25 MG CAPSULE PO PRN (18:56)
[2017-06-21] MEDS: D5-1/2NS with KCL 20mEq 1,000 ML IV SCH ×3 (02:42→15:52)
[2017-06-21] MEDS: PIPERACILLIN/TAZOBACTAM 3.375 GM in NS 50 ML IV SCH ×4 (04:30→22:25)
[2017-06-21] MEDS: KETOROLAC 30 MG/ML INJECTION IVP PRN ×2 (04:37→19:42)
[2017-06-21] MEDS: PANTOPRAZOLE 40 MG INJECTION IVP SCH (10:15)
[2017-06-21] MEDS: NICOTINE 21 MG PATCH TD SCH (10:15)
[2017-06-21] MEDS: ENOXAPARIN 40 MG/0.4 ML INJECTION SQ SCH (10:17)
[2017-06-21] MEDS: NICOTINE PATCH REMOVAL TD SCH (10:18)
--- NOTE | 2017-06-21 12:02 | Progress Note ---
DATE 06/21/2017 POSTOP DAY #3 HISTORY OF PRESENT ILLNESS The patient is tolerating the clear liquid diet with toast and crackers. He is having no nausea or vomiting. He continues to pass flatus. The patient is receiving intravenous Zosyn. The patient is using incentive spirometry. The patient is ambulating well. PHYSICAL EXAMINATION VITAL SIGNS: Temperature is 97.5 degrees Fahrenheit oral. Pulse is 76. Respiratory rate is 16. Blood pressure is 136/76. Oxygen saturation is 92% on room air. ABDOMEN: The abdominal incision looks good. IMPRESSION Doing well following exploratory laparotomy, mobilization of splenic flexure, sigmoid colon resection and primary anastomosis on 06/18/2017. PLAN 1. Continue ambulation. 2. Continue incentive spirometry. 3. Continue Lovenox and sequential compression devices for deep venous thrombosis prophylaxis. 4. Continue intravenous Zosyn. 5. Advance diet to full liquid diet with toast and crackers. 6. Decrease rate of administration of intravenous fluids further. 7. Continue to make oral medications available for pain control. MTDD
--- NOTE | 2017-06-21 16:02 | Progress Note ---
- Date 06/21/17 Subjective: Patient is seen today sitting in bed. He has visitors present. He reports he is doing great. He is ready to go home. He is excited to be advanced to a full liquid diet. Has not had a bowel movement. Pain is minimal. States it's 05/07. He 's only had Toradol today. No chest pain or shortness of breath. Objective Vital signs: Temperature 96.7 F L 06/21/17 14:58 Pulse Rate 70 06/21/17 14:58 Respiratory Rate 18 06/21/17 14:58 Blood Pressure 146/71 H 06/21/17 14:58 Pulse Oximetry 96 06/21/17 14:58 Height/Weight/BMI: Weight 104.5 kg - Constitutional Present: no acute distress, well nourished, well developed - Routine HEENT Exam Head: Present: normocephalic, atraumatic - Routine Respiratory Exam Present: CTA bilaterally. Absent: wheezes - Routine Cardiovascular Exam Present: RRR, no murmur - Routine Abdominal Exam Present: soft, non distended Comments: surgical incision healing nicely with edy intact hypoactive BS's - Routine Extremities Exam Present: no edema, normal capillary refill - Routine Skin Exam Present: dry, warm - Routine Neurological Exam Present: alert, oriented X3 - Routine Lymphatic Exam Lymphatic: Absent: adenopathy - Routine Psychiatric Exam Present: normal affect, cooperative Results - Labs CBC & Chem 7: 06/20/17 04:18 06/20/17 04:18 Assessment and Plan (1) Diverticulitis of sigmoid colon Current visit: Yes Status: Acute (2) Peritonitis Current visit: Yes Status: Acute (3) Perforation bowel Current visit: Yes Status: Acute Assessment and Plan: Assessment Bowel perforation secondary to diverticulitis s/p Sigmoid colon resection with primary anastomosis Acute peritonitis Abdominal pain-controlled Leukocytosis-resolved Mild anemia-present on admission Plan Patient doing well. Continue Zosyn, will de-escalate when surgery comfortable with it Pain is well controlled, only using Toradol for pain today Bowel management per surgery Diet and advancement per surgery-advanced to full liquid today DVT Prophylaxis: Lovenox GI Prophylaxis: Protonix Resuscitation Status: Full Code - Physician Narrative Physician: Lorene Mccartney MD Narrative: Date: 06/21/17 Time: 1809 I have independently evaluated and examined this patient. I reviewed the chart, the patient's history, and the PAPERHANGER SUPERVISOR/PA's documented findings as above. We discussed and formulated the assessment and plan as above with additions as below: Jerry reports he is doing well. He is tolerated clear liquids without difficulty and is passing gas but has not yet had a bowel movement. He is ambulating in the halls without difficulty. Respirations nonlabored, good airflow, breath sounds clear; incision clean and dry, bowel sounds present, abdomen soft/nontender. Diet advanced to full liquids per Dr. Ramírez, on Zosyn for diverticulitis. Doing well postoperatively. Hospital Course Summary Disclaimer: The visit summary below is not to be considered part of the above Progress Note. Hospital Course: Plan - 06/18/17 (Admission) Admit to inpatient status under hospitalist service. Dr. Ramírez was consulted by ED and requests that hospitalist admit as he plans to take the patient to surgery immediately. Zosyn initiated in ED for antimicrobial coverage of suspected abdominal pathogens. Will continue per Dr. Ramírez. While in the ED, he received 1L NS. Will continue IV hydration. Monitor urinary output closely. Dick placed prior to surgery. Monitor blood pressure closely as he has a history of hypertension but is currently not taking any home medications for it. Encourage incentive spirometry. Recheck CBC and BMP in AM to monitor blood counts, electrolytes and renal function. Upon discharge, patient's care will returned to his PCP. 06/19 Continue Zosyn, will de-escalate when surgery comfortable with it Pain is well controlled Bowel management per surgery Diet and advancement per surgery Monitor labs Transfer out of ICU when surgery agreeable 06/20 Continue Zosyn, will de-escalate when surgery comfortable with it Pain is well controlled Bowel management per surgery Diet and advancement per surgery-advanced to clears today Monitor labs 06/21 Patient doing well. Continue Zosyn, will de-escalate when surgery comfortable with it Pain is well controlled, only using Toradol for pain today Bowel management per surgery Diet and advancement per surgery-advanced to full liquid today
[2017-06-21] MEDS: DiphenhydrAMINE 25 MG CAPSULE PO PRN (19:48)
[2017-06-22] MEDS: D5-1/2NS with KCL 20mEq 1,000 ML IV SCH ×3 (01:36→15:41)
[2017-06-22] MEDS: KETOROLAC 30 MG/ML INJECTION IVP PRN (04:52)
[2017-06-22] MEDS: PIPERACILLIN/TAZOBACTAM 3.375 GM in NS 50 ML IV SCH ×3 (04:56→16:21)
[2017-06-22] MEDS: ENOXAPARIN 40 MG/0.4 ML INJECTION SQ SCH (08:49)
[2017-06-22] MEDS: NICOTINE 21 MG PATCH TD SCH (08:51)
[2017-06-22] MEDS: NICOTINE PATCH REMOVAL TD SCH (08:52)
[2017-06-22] MEDS: PANTOPRAZOLE 40 MG INJECTION IVP SCH (08:54)
[2017-06-22] MEDS ORDERED: IBUPROFEN 200 MG TABLET PO PRN (11:02)
[2017-06-22] MEDS: ACETAMINOPHEN 500 MG TABLET PO PRN ×2 (11:15→17:20)
--- NOTE | 2017-06-22 15:00 | Progress Note ---
- Date 06/22/17 Subjective: Mr. Theodore reports he continues to do well. Tolerated full liquids without difficulty, has minimal abdominal pain, no nausea, and continues to pass gas although has not yet had a bowel movement. He is voiding frequently without dysuria. He is ambulating and denies lightheadedness. He denies dyspnea, fever, or chills. Objective Vital signs: Temperature 97.4 F 06/22/17 07:26 Pulse Rate 84 06/22/17 07:26 Respiratory Rate 18 06/22/17 07:26 Blood Pressure 138/76 06/22/17 07:26 Pulse Oximetry 91 -RA 06/22/17 07:26 NAD, alert, fluent speech Conjunctiva clear, conjugate gaze, sclera anicteric, oropharynx clear Neck supple Respirations nonlabored, good airflow, breath sounds clear Regular rhythm, S1 and S2 Abdomen soft, nontender, bowel sounds present Extremities without edema MAEW Height/Weight/BMI: Weight 102.9 kg Results - Labs CBC & Chem 7: 06/22/17 04:46 06/22/17 04:46 Labs: Liver enzymes within normal limits Microbiology Results: Blood cultures negative after 4 days Assessment and Plan (1) Diverticulitis of sigmoid colon Current visit: Yes Status: Acute (2) Peritonitis Current visit: Yes Status: Acute (3) Perforation bowel Current visit: Yes Status: Acute Assessment and Plan: Assessment Bowel perforation secondary to diverticulitis s/p Sigmoid colon resection with primary anastomosis Acute peritonitis Abdominal pain-controlled Leukocytosis-resolved Mild anemia-present on admission Plan Patient doing well. Continue Zosyn, will de-escalate when surgery comfortable with doing so. Pain is well controlled, only using Tylenol for pain today Bowel management per surgery Diet and advancement per surgery-advanced to regular diet today. DVT Prophylaxis: Lovenox Resuscitation Status: Full Code - Physician Narrative Narrative: Date: 06/22/17 Time: 6117 Hospital Course Summary Disclaimer: The visit summary below is not to be considered part of the above Progress Note. Hospital Course: Plan - 06/18/17 (Admission) Admit to inpatient status under hospitalist service. Dr. Ramírez was consulted by ED and requests that hospitalist admit as he plans to take the patient to surgery immediately. Zosyn initiated in ED for antimicrobial coverage of suspected abdominal pathogens. Will continue per Dr. Ramírez. While in the ED, he received 1L NS. Will continue IV hydration. Monitor urinary output closely. Dick placed prior to surgery. Monitor blood pressure closely as he has a history of hypertension but is currently not taking any home medications for it. Encourage incentive spirometry. Recheck CBC and BMP in AM to monitor blood counts, electrolytes and renal function. Upon discharge, patient's care will returned to his PCP. 06/19 Continue Zosyn, will de-escalate when surgery comfortable with it Pain is well controlled Bowel management per surgery Diet and advancement per surgery Monitor labs Transfer out of ICU when surgery agreeable 06/20 Continue Zosyn, will de-escalate when surgery comfortable with it Pain is well controlled Bowel management per surgery Diet and advancement per surgery-advanced to clears today Monitor labs 06/21 Patient doing well. Continue Zosyn, will de-escalate when surgery comfortable with it Pain is well controlled, only using Toradol for pain today Bowel management per surgery Diet and advancement per surgery-advanced to full liquid today 06/22 Tolerating full liquids-advanced to regular diet; Tylenol for pain control. Doing well.
[2017-06-22] MEDS: DiphenhydrAMINE 25 MG CAPSULE PO PRN (17:20)
[2017-06-22 20:04] VITALS: PULSE 72; RESP 16
[2017-06-22] MEDS: MetroNIDAZOLE 500 MG TABLET PO SCH (20:49)
[2017-06-22] MEDS: CIPROFLOXACIN 500 MG TABLET PO SCH (20:49)
[2017-06-23] MEDS: D5-1/2NS with KCL 20mEq 1,000 ML IV SCH ×2 (00:03→03:25)
[2017-06-23] MEDS: ACETAMINOPHEN 500 MG TABLET PO PRN ×2 (00:07→07:59)
--- NOTE | 2017-06-23 06:56 | Progress Note ---
DATE 06/22/2017 POSTOP DAY #4 HISTORY OF PRESENT ILLNESS The patient is tolerating a full liquid diet with toast and crackers. He is still using intravenous Toradol for pain control. The patient continues to receive intravenous Zosyn. The patient is having no nausea or vomiting. He continues to pass flatus. He has not had a bowel movement yet since the operation. The patient is using incentive spirometry. He is ambulating well. PHYSICAL EXAMINATION VITAL SIGNS: Temperature is 97.4 degrees Fahrenheit oral. Pulse is 84. Respiratory rate is 18. Blood pressure is 138/76. Oxygen saturation is 91% on room air. ABDOMEN: The abdominal incision looks good. LABORATORY DATA White blood cell count is 7,300 with 1 band. There are 55% neutrophils. Hemoglobin is 10.6. Hematocrit is 32.5. Serum sodium is 142. Serum potassium is 4.1. Serum creatinine is 1. IMPRESSION 1. Doing well following exploratory laparotomy, mobilization of splenic flexure , sigmoid colon resection and primary anastomosis on 06/18/2017. PLAN 1. Continue ambulation. 2. Continue incentive spirometry. 3. Continue Lovenox and sequential compression devices for deep venous thrombosis prophylaxis. 4. Continue intravenous Zosyn. 5. Advance diet to regular diet today. 6. Discontinue intravenous Toradol and intravenous Demerol and have patient use oral medications for pain control. [facility]
[2017-06-23 07:52] VITALS: BP 150/85; TEMP 96.9; O2SAT 95
[2017-06-23] MEDS: CIPROFLOXACIN 500 MG TABLET PO SCH (08:18)
[2017-06-23] MEDS: MetroNIDAZOLE 500 MG TABLET PO SCH (08:19)
[2017-06-23] MEDS: ENOXAPARIN 40 MG/0.4 ML INJECTION SQ SCH (08:19)
[2017-06-23] MEDS: NICOTINE PATCH REMOVAL TD SCH (08:20)
[2017-06-23] MEDS: NICOTINE 21 MG PATCH TD SCH (08:20)
--- NOTE | 2017-06-23 10:45 | Progress Note ---
- Date 06/23/17 Subjective: Patient is seen sitting in his bed this morning. He reports he is ready to go home. His pain is well controlled. Only taking Tylenol. He has tolerated a regular diet yesterday but has not yet had a bowel movement. Is passing gas and feels movement in the intestines. Has been up walking. Objective Vital signs: Temperature 96.9 F 06/23/17 07:52 Pulse Rate 72 06/23/17 07:52 Respiratory Rate 16 06/23/17 07:52 Blood Pressure 150/85 H 06/23/17 07:52 Pulse Oximetry 95 06/23/17 07:52 Height/Weight/BMI: Weight 101.9 kg - Constitutional Present: no acute distress, well nourished, well developed - Routine HEENT Exam Head: Present: normocephalic, atraumatic - Routine Respiratory Exam Present: CTA bilaterally. Absent: wheezes - Routine Cardiovascular Exam Present: RRR, no murmur - Routine Abdominal Exam Present: soft, non distended, non tender, wound (edy intact. No sign of infection.) - Routine Extremities Exam Present: no edema, normal capillary refill - Routine Skin Exam Present: dry, warm - Routine Neurological Exam Present: alert, oriented X3 - Routine Lymphatic Exam Lymphatic: Absent: adenopathy - Routine Psychiatric Exam Present: normal affect, cooperative Results - Labs CBC & Chem 7: 06/22/17 04:46 06/22/17 04:46 Assessment and Plan (1) Diverticulitis of sigmoid colon Current visit: Yes Status: Acute (2) Peritonitis Current visit: Yes Status: Acute (3) Perforation bowel Current visit: Yes Status: Acute Assessment and Plan: Assessment Bowel perforation secondary to diverticulitis s/p Sigmoid colon resection with primary anastomosis Acute peritonitis-resolved Abdominal pain-controlled Leukocytosis-resolved Mild anemia-present on admission Plan Patient doing very well, anticipates discharge today. He continues on a regular diet. His IV fluids were discontinued. Last evening he was converted from Zosyn to Cipro and Flagyl. From a medical standpoint, okay for discharge. Will leave this to discretion of surgeon. - Physician Narrative Narrative: Date: 06/23/17 Time: 1039 Hospital Course Summary Disclaimer: The visit summary below is not to be considered part of the above Progress Note. Hospital Course: Plan - 06/18/17 (Admission) Admit to inpatient status under hospitalist service. Dr. Ramírez was consulted by ED and requests that hospitalist admit as he plans to take the patient to surgery immediately. Zosyn initiated in ED for antimicrobial coverage of suspected abdominal pathogens. Will continue per Dr. Ramírez. While in the ED, he received 1L NS. Will continue IV hydration. Monitor urinary output closely. Dick placed prior to surgery. Monitor blood pressure closely as he has a history of hypertension but is currently not taking any home medications for it. Encourage incentive spirometry. Recheck CBC and BMP in AM to monitor blood counts, electrolytes and renal function. Upon discharge, patient's care will returned to his PCP. 06/19 Continue Zosyn, will de-escalate when surgery comfortable with it Pain is well controlled Bowel management per surgery Diet and advancement per surgery Monitor labs Transfer out of ICU when surgery agreeable 06/20 Continue Zosyn, will de-escalate when surgery comfortable with it Pain is well controlled Bowel management per surgery Diet and advancement per surgery-advanced to clears today Monitor labs 06/21 Patient doing well. Continue Zosyn, will de-escalate when surgery comfortable with it Pain is well controlled, only using Toradol for pain today Bowel management per surgery Diet and advancement per surgery-advanced to full liquid today 06/22 Tolerating full liquids-advanced to regular diet; Tylenol for pain control. Doing well. 06/23 Patient doing very well, anticipates discharge today. He continues on a regular diet. His IV fluids were discontinued. Last evening he was converted from Zosyn to Cipro and Flagyl. From a medical standpoint, okay for discharge. Will leave this to discretion of surgeon.
--- NOTE | 2017-06-23 21:04 | Discharge Summary ---
Discharge Information Date of admission: 06/18/17 15:18 Anticipated date of discharge: 06/23/17 Attending Physician: Lorene Mccartney MD Consults: Dr. Phil Ramírez - Discharge Diagnosis (1) Diverticulitis of sigmoid colon Status: Acute (2) Peritonitis Status: Acute (3) Perforation bowel Status: Acute Bowel perforation secondary to diverticulitis s/p Sigmoid colon resection with primary anastomosis Acute peritonitis-resolved Abdominal pain-controlled Leukocytosis-resolved Mild anemia-present on admission - Procedures Procedures: 06/18/2017 Exploratory laparotomy, mobilization of splenic flexure of colon, resection of segment of sigmoid colon and primary anastomosis. - Laboratory Labs: 06/22/17 04:46 06/22/17 04:46 - Microbiology Blood cultures 2 negative after 5 days - Radiology Radiology: Date of Exam: 06/18/17 Indication: R10.9 ACUTE ABD PAIN PROCEDURE: CT abdomen pelvis w con: Findings: Linear atelectasis seen in the lingula and both lower lobes. Free intraperitoneal air is seen in the right upper abdomen surrounding the liver margin. There is a low-attenuation 1.7 cm lesion in the central aspect of the right lobe of the liver measuring 18 Hounsfield units. This could represent a benign cyst . Small amount of free air in the guicho hepatis. The gallbladder appears normal. The spleen is unremarkable. The pancreas and adrenal glands are normal. The kidneys are normal. Small foci of free air along the greater curvature of stomach and under the left hemidiaphragm as well. There is inflammation in the pelvis adjacent to the left aspect of the bladder which is otherwise normal. There is sigmoid colonic severe inflammatory change with multiple diverticula present. There is a large focus of extraluminal gas seen adjacent to the mid sigmoid colon on image #77 measuring 3 cm in diameter. Severe inflammation within the adjacent sigmoid mesentery with inflammatory change extending into the left inguinal canal. No evidence of a bowel obstruction. The appendix is slightly thickened at 7 mm in diameter without adjacent inflammatory stranding. No well-defined rim-enhancing abscess identified. There is a small amount of free fluid in the left pelvis adjacent to the sigmoid colonic perforation. Bone windows show postoperative changes in the spine. No lytic or blastic bony lesions. Impression: Perforated sigmoid diverticulitis. Recommend emergent surgical consultation. - Pathology Sigmoid colon fragment: Marked acute necrotizing diverticulitis with perforation and abscess. Acute serositis. No atypica or neoplasm History of Present Illness HPI: Jerry Theodore is a 51-year-old male who presented to [facility] [place], 06/18/17, for evaluation of lower abdominal pain for the past 4 days. He was seen by his PCP who obtained an outpatient CT abdomen/pelvis on 06/18/17 which revealed perforated sigmoid diverticulitis and recommended emergent surgical consultation. He then presented to [facility] for further evaluation at which time Dr. Ramírez was consulted and recommended immediate surgery with the hospitalist service to admit. Dr. Bob was consulted and accepted him into inpatient status following his surgery. He is expected to stay longer than 2 nights. Labs were obtained prior to surgery which revealed leukocytosis (WBC 13.0) and mild anemia (Hgb 13.0). BMP was unremarkable. Lactate 1.3. Objective Vital signs: See progress note dated today for exam. Height/Weight/BMI: Weight 101.9 kg Hospital Course This is a general summary of the patient's hospital course. For more details refer to the complete medical record. Hospital course: 06/18/17 (Admission) Admit to inpatient status under hospitalist service. Dr. Ramírez was consulted by ED and requests that hospitalist admit as he plans to take the patient to surgery immediately. Zosyn initiated in ED for antimicrobial coverage of suspected abdominal pathogens. Will continue per Dr. Ramírez. While in the ED, he received 1L NS. Will continue IV hydration. Monitor urinary output closely. Dick placed prior to surgery. Monitor blood pressure closely as he has a history of hypertension but is currently not taking any home medications for it. Encourage incentive spirometry. Recheck CBC and BMP in AM to monitor blood counts, electrolytes and renal function. 06/19 Continue Zosyn, will de-escalate when surgery comfortable with it Pain is well controlled Bowel management per surgery Diet and advancement per surgery Monitor labs Transfer out of ICU when surgery agreeable 06/20 Continue Zosyn, will de-escalate when surgery comfortable with it Pain is well controlled Bowel management per surgery Diet and advancement per surgery-advanced to clears today Monitor labs 06/21 Patient doing well. Continue Zosyn, will de-escalate when surgery comfortable with it Pain is well controlled, only using Toradol for pain today Bowel management per surgery Diet and advancement per surgery-advanced to full liquid today 2/25 Tolerating full liquids-advanced to regular diet; Tylenol for pain control. Doing well. Convert from IV antibiotics to oral with Cipro/metronidazole bid. 06/23 Patient doing very well, discharge today. He continues on a regular diet. IV fluids discontinued; good oral intake. Time spent with patient: discharge greater than 30 minutes Resuscitation Status: Full Code Discharge Plan - Discharge Disposition Discharge Date: 06/23/17 Disposition: Discharged Home, Self-Care *Condition: Stable Reason For Visit (Visit label in EMR): perforated diverticulitis - Discharge Medications *Discharge Medications: New Acetaminophen [Tylenol] 500 - 1,000 mg PO Q6H PRN tab PRN Reason: Discomfort MetroNIDAZOLE [Flagyl] 500 mg PO BID #21 tab Ciprofloxacin [Cipro 500 mg] 500 mg PO Q12HR #21 tab Continue [place]-3/Dha/Epa/Fish Oil [Fish Oil 1,000 mg Softgel] 2 cap PO HS Multivitamin [One Daily Multivitamin] 1 each PO HS Aspirin [ASA] 325 mg PO HS Naproxen [Aleve] 220 mg PO Q6H PRN PRN Reason: Pain - Discharge Packet/Instructions *Diet: Regular diet *Activity: Ok to be up and around the house, but no driving or outside activity until Friday. After Friday, may drive and run errands, but do not return to work until you see Dr. Ramírez in the office next or Fri. He feels you need to be off work for at least a week. He'll give you further return to work information/papers at your visit with him. *Pain Management/Treatment: Tylenol as needed *Wound Care: Keep clean and dry. Okay to shower. Do not soak for prolonged period in bathtub. Additional Instructions: Take antibiotics until finished *Expected Signs/Symptoms: Continued improvement in bowel function and decrease in pain *Notify Physician if: you develop fever or increasing pain or if you are unable to have a bowel movement. *During Business Hours Contact: Dr Ramírez's office or [facility] *After Business Hours Contact: Contact [facility] and have your provider paged *Pending Lab/Results: No Pending Lab - Referrals/Follow Up *Referrals/Follow Up: Phil Ramírez MD [Physician] - 07/01/17 3:45 pm (next or Fri) Tauiliili,Lyndsey J, PARTY DIRECTOR [Advanced Practice Nurse] - 2 Weeks - Patient Handouts Patient Handouts: Colectomy (DC), Bowel Obstruction (DC) - Dismissal Complete Discharge Instructions are:: Complete Physician Narrative - Narrative Physician: Lorene Mccartney MD Attestation Narrative: Date: 06/23/17 Time: 2249 I have independently evaluated and examined this patient. I reviewed the chart, the patient's history, and the PARTY DIRECTOR/PA's documented findings as above. We discussed and formulated the assessment and plan as above with additions as below: Jerry was seen this morning at which time he indicated he was feeling well, tolerating solid food, and tolerating oral antibiotics. Is having no abdominal discomfort or nausea. He was anxious for discharge. He's remained afebrile for the last 5 days and white count normalized postoperatively and was only minimally elevated preoperatively. Patient is alert and cooperative, speech is fluent, and abdomen is entirely benign. Patient status was reviewed with Dr. Ramírez and discharge plans made. Patient is to follow-up with Dr. Ramírez in approximately one week for staple removal and further surgical recommendations.
== END 2017-06-23 15:05 | disposition home or self-care (01) | DRG 330 ==
LOC: ED 12:54 → SUR 15:17 → SRG 15:18 → SUATTDRO 15:18 → SUR 15:32 → CCU 21:00 → SRG 06-19 11:55
PROVIDERS: ADMIT Pediatrics; ATTEND Internal Medicine